=== PATIENT | male | born 1975 | race Caucasian/White ===

== ENCOUNTER 2016-11-19 20:48 | Emergency (ER) | payer OTHER ==
[~2016-11-19] VITALS: Ht 177.8 cm; Wt 124.7 kg
[~2016-11-19 20:48] MED LIST: CIPRO 500MG TA500 MG PO; FLAGYL500 MG PO; ROBAXIN-750750 MG PO; TYLENOL W/CODEI1 TA2 PO; ZANTAC 150150 MG PO
[2016-11-19 22:12] VITALS: BP 161/85
== END 2016-11-19 22:14 | disposition left against medical advice (07) ==
LOC: ER 20:48
DX: Z53.29 Procedure and treatment not carried out because of patient's decision for other reasons (principal); T15.12XA Foreign body in conjunctival sac, left eye, initial encounter